=== PATIENT | female | born 1995 | race Caucasian/White ===

== ENCOUNTER → 2018-11-10 | Outpatient (CLI) | payer OTHER | LOC: LAB 12:57 | PROVIDERS: ATTEND Advanced Practice Midwife | DX: R07.0 Pain in throat (principal) | CPT/HCPCS: 87070; 87880 ==

== ENCOUNTER → 2020-02-20 | Outpatient (CLI) | payer OTHER ==
[2020-02-20 09:19] LABS: ABSOLUTE EOSINOPHILS # (AUTO) 0.1 10^3/uL (0.0-0.6); ABSOLUTE LYMPHOCYTES (AUTO) 2.2 10^3/uL (0.5-4.7); ABSOLUTE MONOCYTES (AUTO) 0.3 10^3/uL (0.1-1.4); HEMATOCRIT 43.6 % (36.0-47.0); HEMOGLOBIN 15.1 g/dL (12.0-15.5); MEAN CORPUSCULAR HGB CONC 34.6 g/dL (32.0-36.0); PLATELET COUNT 227 10^3/uL (150-450); TOTAL CELLS COUNTED % (AUTO) 100 %; WHITE BLOOD COUNT 5.7 10^3/uL (4.0-10.5)
[2020-02-20 09:29] LABS: BASOPHILS % (AUTO) 0.8 % (0-2); EOSINOPHILS % (AUTO) 1.2 % (0-6); LYMPHOCYTES % (AUTO) 38.1 % (13-45); MEAN CORPUSCULAR HEMOGLOBIN 30.6 pg (27.0-33.4); MEAN CORPUSCULAR VOLUME 88 fl (80-97); MONOCYTES % (AUTO) 6.2 % (3-13); RED BLOOD COUNT 4.93 10^6/uL (3.72-5.28); RED CELL DISTRIBUTION WIDTH 13.8 % (11.5-14.0); SEGMENTED NEUTROPHILS % (AUTO) 53.7 % (42-78)
[2020-02-20 09:41] LABS: ALBUMIN 4.8 g/dL (3.5-5.0); ALKALINE PHOSPHATASE 62 U/L (38-126); ANION GAP 9 (5-19); ASPARTATE AMINO TRANSFERASE 18 U/L (14-36); BILIRUBIN,TOTAL 0.7 mg/dL (0.2-1.3); BLOOD UREA NITROGEN 14 mg/dL (7-20); CALCIUM 9.7 mg/dL (8.4-10.2); CARBON DIOXIDE 26 mmol/L (22-30); CHLORIDE 104 mmol/L (98-107); CHOLESTEROL 160.23 mg/dL (0-200); GLUCOSE 90 mg/dL (75-110); POTASSIUM 4.3 mmol/L (3.6-5.0); TOTAL PROTEIN 7.7 g/dL (6.3-8.2); TRIGLYCERIDES 45 mg/dL (<150)
[2020-02-20 09:51] LABS: DIRECT LDL 82 mg/dL (<100)
--- NOTE | 2020-02-21 07:29 | EKG REPORT ---
SEVERITY:- BORDERLINE ECG - SINUS RHYTHM PROBABLE LEFT ATRIAL ABNORMALITY ST ELEV, PROBABLE NORMAL EARLY REPOL PATTERN INCOMPLETE RBBB : Confirmed by: Michoacano Joy 21-Feb-2020 07:28:37
== END ==
LOC: OD 08:45
PROVIDERS: ATTEND Nurse Practitioner
DX: E66.3 Overweight (principal); Z13.228 Encounter for screening for other metabolic disorders; R00.2 Palpitations
CPT/HCPCS: 36415; 80053; 80061; 83036; 84443; 85025; 93005; 93010